=== PATIENT | male | born 1990 | race Asian ===

== ENCOUNTER 2022-03-11 16:54 | Emergency (ER) | payer OTHER ==
[~2022-03-11] VITALS: Ht 152.4 cm; Wt 67.1 kg
[2022-03-11 17:01] VITALS: BP_SYST 117
--- NOTE | 2022-03-11 17:01 | NUR ---
Patient to ER bed 05 to gown for evaluation. Side rails up.
--- NOTE | 2022-03-11 17:20 | NUR ---
pt arrives from home c/o cough with blood in sputum. awake alertx4. Symptoms present since Tuesday. Language barrier [place] speaking. states pt is covid negative from home test on tuesday. not a smoker. PMH no surgeries no dx Pfizer vaccinatedx2
--- NOTE | 2022-03-11 17:25 | NUR ---
ER Dr Ling at bedside examining patient.
--- NOTE | 2022-03-11 17:44 | NUR ---
covid and flu specimen collected sent to lab.
[2022-03-11] MEDS ORDERED: AMOX500C2 PO (18:51)
[2022-03-11 19:01] VITALS: BP_SYST 117
--- NOTE | 2022-03-11 19:03 | NUR ---
Patient given written and verbal discharge instructions and verbalizes understanding. ER MD discussed with patient the results and treatment provided. Patient in stable condition. ID arm band removed. Rx of AMOXICILLIN given. Patient educated on pain management and to follow up with PMD. Opportunity for questions provided and answered. Medication side effect fact sheet provided.
== END 2022-03-11 19:03 | disposition home or self-care (01) ==
LOC: SED 16:54
DX: J40 Bronchitis, not specified as acute or chronic (principal); Z20.822 Contact with and (suspected) exposure to COVID-19
CPT/HCPCS: 36415; 71046-TC; 99284

== ENCOUNTER 2022-06-16 09:43 | Emergency (ER) | payer OTHER ==
[~2022-06-16] VITALS: Ht 175.3 cm; Wt 68.0 kg
[~2022-06-16 09:43] MED LIST: AMOX500C2 PO
[2022-06-16 10:05] VITALS: BP_SYST 119
--- NOTE | 2022-06-16 10:35 | NUR ---
DR BETH IN TENT FOR EXAM
--- NOTE | 2022-06-16 10:47 | NUR ---
PT HERE FOR MILD RETANNED LEATHER ROLLER COUGH AND GENERAL MALIASE FOR 1 DAY. DENIES SOB OR CP. SKIN W/D/I. INNAD. RESP EVEN AND UNALBORED,ON RA @98%. DENIES FEVERS/CHILLS.
--- NOTE | 2022-06-16 11:16 | NUR ---
Patient given written and verbal discharge instructions and verbalizes understanding. ER MD discussed with patient the results and treatment provided. Patient in stable condition. ID arm band removed. Rx of IBUPRFOEN given. Patient educated on pain management and to follow up with PMD. Pain Scale . Opportunity for questions provided and answered. Medication side effect fact sheet provided.
[2022-06-16 11:36] VITALS: BP_SYST 119
== END 2022-06-16 11:16 | disposition home or self-care (01) ==
LOC: SED 09:43
DX: U07.1 COVID-19 (principal); J02.9 Acute pharyngitis, unspecified; R05.9 Cough, unspecified; R53.81 Other malaise; Z79.899 Other long term (current) drug therapy
CPT/HCPCS: 99282